=== PATIENT | female | born 1970 | race Caucasian/White ===

== ENCOUNTER 2017-09-24 06:24 | Inpatient (IN) ==
[2017-09-24] MEDS ORDERED: CeFAZolin Syr 3,000MG/30 ML 3,000 MG/30 ML SYRINGE IVPB ONE (06:41)
[2017-09-24] MEDS ORDERED: Lidocaine -MPF 1% 2 ML VIAL ID ONE (06:41)
[2017-09-24] MEDS: Ringers Solution, Lactated 1,000 ML IVC SCH ×3 (06:45→14:07)
[2017-09-24] MEDS ORDERED: Gabapentin 300 MG CAPSULE PO ONE (07:02)
[2017-09-24] MEDS ORDERED: Famotidine 20 MG/2 ML VIAL IVP ONE (07:02)
--- NOTE | 2017-09-24 07:09 | Anesthesia Evaluation PreOp ---
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 HX Other Medical History: Other (Morbid Obesity) Anesthesia History: No Prior Anesthetic Complications : No Test: Negative Alcohol Use: none Drug use: none Medications and Allergies Amoxicillin/Clavulanate [Augmentin] 875 mg PO BID #20 tablet 10/05/16 [Rx] Fluticasone Propionate Nasal [Flonase] 2 spray NS DAILY #1 bottle 10/05/16 [Rx] GuaiFENesin ER [Mucinex] 600 mg PO BID PRN #20 tab 10/05/16 [Rx] Ibuprofen [Motrin] 800 mg PO Q8HR PRN #20 tablet 10/05/16 [Rx] 3 Allergy/AdvReac Type Severity Reaction Status Date / Time acetaminophen [From Vicodin] AdvReac Diarrhea Verified 10/05/16 10:29 hydrocodone [From Vicodin] AdvReac Diarrhea Verified 10/05/16 10:29 - Meds/Allergy Pre-op Review Medications Reviewed: Yes Allergies Reviewed: Yes Beta Blockers on Current Med List: No Anesthesia Results - Labs Laboratory Tests 04/30/17 09/21/17 09/21/17 08:37 11:18 11:18 Hgb 13.1 Hct 40.0 Plt Count 363 Serum , Qual Negative Anesthesia Exam Vital Signs/O2 Sat/Glucose, Most Current Temp Pulse Resp BP Pulse Ox 09/24/17 06:42 97.9 F 76 18 126/79 97 Height: 5'5 Weight: 294 lbs NPO (# of Hours): MN Pain Scale: 0 - HEENT Pupil (Motor): Pupils equal, EOMI Mallampati: II Teeth: Normal Oral Opening: Greater than 3 - MAILING MACHINE OPERATOR LOC: Oriented MAILING MACHINE OPERATOR Motor: Normal RUE, Normal LUE, Normal RLE, Normal LLE, Normal Face MAILING MACHINE OPERATOR Sensory: Normal: RUE, LUE, RLE, LLE, Face - Cardiac Rhythm: Regular Murmur: None JVD: No Carotid Bruit: No - Pulmonary Breath Sounds: bilateral Clear Respiratory Effort: Symmetrical Anesthesia Assess/Plan ASA Score: 3 (MO) Modified Cary Scale for Level of Consciousness: Cooperative, oriented, and tranquil Anesthetic Plan: General Monitoring Plan: Standard Monitors Recovery Plan: PACU (Discussed GA, agrees to proceed)
[2017-09-24] MEDS ORDERED: Lidocaine -MPF 1% 2 ML VIAL ONE (07:12)
[2017-09-24] MEDS ORDERED: *HR* OxyCODONE/APAP 5/325 TABLET PO PRN (07:36)
[2017-09-24] MEDS ORDERED: Naloxone 0.4 MG/ML INJ IVP PRN (07:36)
[2017-09-24] MEDS ORDERED: Ondansetron 4 MG/2 ML VIAL IVP PRN (07:36)
--- NOTE | 2017-09-24 07:36 | History & Physical Report ---
Date of Encounter: 09/24/17 Time of Encounter: 07:34 24 Hour HP Update - Instructions Instructions: If the History and Physical is less than 30 days old and was completed prior to A.M. admission and or procedure and has NOT been updated on calendar day of procedure please complete this update prior to performing procedure. - Update Patient reports changes in Medical Condition: No Changes in examination, assessment, or condition: No Changes in Medication: No Preop tests/diagnostics Reviewed: Yes Surgery Remains Indicated: Yes Consent for Planned Operative Procedure(s) Verified: Yes - Pre-Operative Checklist Preoperative Checklist Indicated: Yes Prophylactic Antibiotic Ordered: Yes Home Medications Include Beta Camilo: No Beta Camilo Taken Today (Day of Surgery): No Beta Camilo Taken Yesterday (Day Prior to Surgery): No Is VTE Prophylaxis Indicated?: Yes
[2017-09-24] MEDS ORDERED: *HR* Propofol 200 MG/20 ML VIAL IVP ONE (07:38)
[2017-09-24] MEDS ORDERED: *HR* FentaNYL (PF) 100 MCG/2 ML VIAL ONE ×2 (07:42→08:40)
[2017-09-24] MEDS ORDERED: *HR* Midazolam HCl 2 MG/2 ML VIAL ONE (07:43)
[2017-09-24] MEDS ORDERED: Ringers Solution, Lactated 1,000 ML IVC SCH (07:45)
[2017-09-24] MEDS ORDERED: *HR* Promethazine 25 MG/ML VIAL IVP PRN (07:46)
[2017-09-24] MEDS ORDERED: *HR* Meperidine 25 MG/ML SYRINGE IVP PRN (07:46)
[2017-09-24] MEDS ORDERED: *HR* Rocuronium Bromide 50 MG/5 ML VIAL ONE (08:39)
[2017-09-24] MEDS ORDERED: Lidocaine -MPF 2% 2 ML VIAL ONE (08:39)
[2017-09-24] MEDS ORDERED: Ondansetron 4 MG/2 ML VIAL ONE (08:39)
[2017-09-24] MEDS ORDERED: Ketorolac 30 MG/ML VIAL ONE (08:39)
[2017-09-24] MEDS ORDERED: Dexamethasone 4 MG/ML VIAL ONE (08:39)
[2017-09-24] MEDS ORDERED: *HR* Succinylcholine 200 MG/10 ML VIAL IVP ONE (08:39)
[2017-09-24] MEDS ORDERED: Lidocaine -MPF 4% 5 ML AMPUL ONE (08:40)
[2017-09-24] MEDS ORDERED: *HR* HYDROmorphone 2 MG/ML SYRINGE ONE (10:16)
--- NOTE | 2017-09-24 10:30 | OB/GYN Procedure Note ---
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 Narrative: The patient was placed in the dorsal supine position after an adequate level of general anesthesia was obtained and after appropriate informed consent had been obtained. The March was draining clear urine from the bladder. After the patient was prepped and draped in the usual sterile manner, a Pfannenstiel incision was made at the level of her previous scar. Subcutaneous tissue was incised until the level of the rectus fascia was reached. A oskar was made in the fascia. This was extended the length of the incision using Tirado scissors. There was dense scar tissue communicating with the recti muscles but we were able to separate the muscles and get adequate entry into the abdomen. We explored the abdomen. The bowels grossly appeared normal. The uterus was noted to be adherent to the bladder and the adhesions extended to the anterior abdominal wall. The ovaries were examined and found to be normal, the tubes had been surgically ligated. The hysterectomy was begun after the bowels were packed. A mini maylard incision was made to give us better visualization. The right round ligament was clamped with the Ligasure device, clamped and cut. The anterior leaf of the broad ligament was cut using Metzenbaum scissors. The bladder that was adherent to the anterior aspect of the uterus was gently dissected using sharp and blunt dissection and it was gently pushed down with the sponge on a stick. Two fingers were inserted through the posterior leaf of the right broad ligament. The tissue was grasped with the Ligasure, clamped and cut to free the ovaries as well as amputate the tubes. The right uterine artery was then skeletonized, clamped at the level of the cervical os using the Ligasure device and cut. Similar procedure was done on the opposite side. By the time we got down to the cervix, we saw that the bladder was still adherent. I tried to dissect the bladder off with difficulty and with limited visualization due to patient habitus, I was not able to adequately dissect the bladder off the cervix completely so I proceeded to perform a supra cervical hysterectomy. The uterus was amputated at the utero-cervico junction. This we did by placing 2 curved heaneys tip to tip together beneath the uterus, using curved scissors to amputate the uterus. 0-Vicryl suture was then used to approximate the cervix. Bleeding points were suture ligated until adequate hemsostasis was achieved. The fascia was reapproximated with 0-vicryl, the subcutaneous tissue was reapproximated with 3-0 vicryl. The skin was closed with 4-0 vicryl. The patient tolerated the procedure well and was transferred to the floor.
[2017-09-24] MEDS: *HR* HYDROmorphone (PF) 1 MG/ML SYRINGE IVP PRN ×10 (10:50→20:01)
--- NOTE | 2017-09-24 11:51 | Anesthesia Evaluation Post Op ---
Date of Encounter: 09/24/17 Time of Encounter: 11:35 - Vital Signs Vital Signs: Vital Signs/O2 Sat/Glucose, Most Current Temp Pulse Resp BP Pulse Ox 09/24/17 11:37 97.3 F L 76 12 122/69 97 09/24/17 11:27 70 12 118/69 96 09/24/17 11:17 69 12 111/72 97 09/24/17 11:07 97.0 F L 68 12 122/75 97 09/24/17 10:57 72 14 125/75 97 09/24/17 10:47 71 14 122/77 98 09/24/17 10:37 97.3 F L 78 14 128/69 98 - Lungs Lungs: Clear Ascult./Percussion - Airway Airway: Non-obstructed - Cardiovascular Regular Rate - Mental Status Mental Status: Alert & Oriented, Answers Appropriately - Pain Pain Scale: 0 - Nausea Vomiting Nausea Vomiting: Not Present - Hydration Hydration: Ice chips - Discharge PostOp Status: Transfer Patient to floor
[2017-09-25] MEDS ORDERED: Ondansetron 4 MG/2 ML VIAL IVP PRN (00:58)
[2017-09-25] MEDS ORDERED: Ringers Solution, Lactated 500 ML IVC ONE (01:07)
[2017-09-25] MEDS: Loratadine/Pseudophed (12 HR) 1 EACH TABLET PO SCH (01:31)
[2017-09-25] MEDS ORDERED: *HR* Promethazine 25 MG/ML VIAL IVP PRN (03:32)
[2017-09-25] MEDS: Ringers Solution, Lactated 1,000 ML IVC SCH (03:38)
[2017-09-25 06:28] LABS: Basophils % 0.1 %; Hemoglobin 12.4 g/dL (11.5-15.4); Immature Granulocytes % 0.4 % (0-4); Lymphocytes # 1.2 K/mcL (0.6-4.6); Mean Corpuscular HGB Conc 32.6 g/dL (31.6-35.5); Mean Corpuscular Hemoglobin 28.1 pg (28.0-33.3); Mean Platelet Volume 9.3 fL (9.4-12.4); Monocytes # 0.9 K/mcL (0.0-1.3); Monocytes % 6.3 %; Neutrophils # 12.4 K/mcL (1.6-8.9); Platelet Count 271 K/mcL (140-400); Red Blood Count 4.42 M/mcL (3.82-4.97); Red Cell Distribution Width 13.5 % (11.5-14.5); Segmented Neutrophils % 85.2 %
--- NOTE | 2017-09-25 07:47 | OB/GYN Progress Note ---
Date of Encounter: 09/25/17 Time of Encounter: 07:38 - Assessment and Plan (1) Status post hysterectomy Current Visit: Yes Status: Acute will remove nath, patient receiving anti nausea meds, counseled patient to ambulate, keep on clears for now till evening, cont current post op care Subjective - Subjective Interval history: saw patient this AM, having some nausea, tolerated PO last night but developed nausea this Am, also reports GALLARDO, otherwise pain is under control, adequate urine , nath still in Objective - Vital Signs Latest vital signs: Vital Signs Temp Pulse Pulse Resp BP Pulse Ox 09/25/17 05:00 98.1 F 90 20 116/80 95 09/25/17 03:20 97.9 F 82 82 16 129/85 96 09/25/17 00:15 98.1 F 85 85 16 121/79 98 09/24/17 19:30 98.1 F 88 88 20 125/78 96 09/24/17 15:00 98.1 F 83 16 117/74 98 09/24/17 14:00 98.1 F 84 16 136/73 95 09/24/17 13:00 98.3 F 73 16 106/77 93 09/24/17 12:30 98.2 F 99 16 114/80 93 09/24/17 11:37 97.3 F L 76 12 122/69 97 09/24/17 11:27 70 12 118/69 96 09/24/17 11:17 69 12 111/72 97 09/24/17 11:07 97.0 F L 68 12 122/75 97 09/24/17 10:57 72 14 125/75 97 09/24/17 10:47 71 14 122/77 98 09/24/17 10:37 97.3 F L 78 14 128/69 98 Intake and Output 09/24/17 09/24/17 09/25/17 15:59 23:59 07:59 Intake Total 1030 / 1030 900 / 900 100 / 100 Output Total 150 / 150 350 / 350 925 / 925 Balance 880 / 880 550 / 550 -825 / -825 Intake: IV Fluids 1030 / 1030 900 / 900 Lactated Ringers 1,000 ML @ 125 1000 / 1000 900 / 900 mls/hr IVC .Q8H AFUA Rx#: [id number] Ancef Syringe 3,000 MG/30 ML 3, 30 / 30 000 mg In 30 ml @ 200 mls/hr IVPB PREOP ONE Rx#:[id number] Oral 100 / 100 Output: Urine 300 / 300 Emesis 600 / 600 Estimated Blood Loss 150 / 150 Catheter 50 / 50 325 / 325 Other: Weight 134.263 kg Patient Weight 09/25/17 23:59 Weight 134.263 kg - I&O's I&O's: Intake & Output 09/22/17 09/23/17 09/24/17 09/25/17 23:59 23:59 23:59 23:59 Intake Total 1930 / 1930 100 / 100 Output Total 500 / 500 925 / 925 Balance 1430 / 1430 -825 / -825 Weight 133.356 kg 134.263 kg - Exam Lungs: bilateral: normal Chest: Normal S1, Normal S2 Extremities: Present: normal Abdomen: Present: soft Incision OB: Present: dressed - Labs Labs: Abnormal lab results WBC 14.6 K/mcL (4.3-11.1) H 09/25/17 06:22 MPV 9.3 fL (9.4-12.4) L 09/25/17 06:22 Neutrophils # 12.4 K/mcL (1.6-8.9) H 09/25/17 06:22 Consult Discharge Plan - Plan Referrals: Sven Roman MD [Primary Care Provider] -
[2017-09-25] MEDS ORDERED: Acetaminophen/Butalbital/CaffeineTABLET PO PRN (07:49)
[2017-09-25] MEDS: Ibuprofen 600 MG TABLET PO PRN (17:50)
[2017-09-25] MEDS ORDERED: Ondansetron ODT 4 MG TAB.RAPDIS SL PRN (18:39)
[2017-09-26] MEDS: Ibuprofen 600 MG TABLET PO PRN ×2 (03:02→09:39)
[2017-09-26 08:32] VITALS: BP 120/80
[2017-09-26] MEDS: Loratadine/Pseudophed (12 HR) 1 EACH TABLET PO SCH (09:36)
--- NOTE | 2017-09-26 13:01 | Discharge Summary ---
Date of Encounter: 09/26/17 Time of Encounter: 13:00 - Discharge Diagnosis (1) Status post hysterectomy Priority: Primary Status: Acute Comments: patient seen and examined, doing very well, ok for discharge - Discharge Medications Home Medications: Ibuprofen/Diphenhydramine Cit [Advil Pm Caplet] 1 each PO PRN PRN 09/24/17 [ History] Allergies/Adverse Reactions: 3 Allergy/AdvReac Type Severity Reaction Status Date / Time acetaminophen [From Vicodin] AdvReac Diarrhea Verified 09/24/17 07:17 hydrocodone [From Vicodin] AdvReac Diarrhea Verified 09/24/17 07:17 Data Procedures and tests throughout hospitalization: Laboratory Tests 09/25/17 06:22 WBC 14.6 H RBC 4.42 Hgb 12.4 Hct 38.0 MCV 86.0 MCH 28.1 MCHC 32.6 RDW 13.5 Plt Count 271 MPV 9.3 L Immature Gran % 0.4 Seg Neutrophils % 85.2 Lymphocytes % 8.0 Monocytes % 6.3 Eosinophils % 0.0 Basophils % 0.1 Neutrophils # 12.4 H Lymphocytes # 1.2 Monocytes # 0.9 Eosinophils # 0.0 Basophils # 0.0 Date of admission: 09/24/17 12:07 Primary care physician: Sven Roman MD - Patient Status Disposition: Home, Self-Care Condition: Good Functional capacity at discharge: independent ambulation Overall status at discharge: patient is progressing back to baseline - Discharge Instructions Follow Up With: Sven Roman MD [Primary Care Provider] - Hospital Course SUPERVISOR PHOTOCOMPOSITION Time Attestation: Total time spent providing and/or coordinating discharge services: Exam - Constitutional Vitals: Temp Pulse Resp BP Pulse Ox 97.9 F 84 20 120/80 95 09/26/17 08:30 09/26/17 08:30 09/26/17 08:30 09/26/17 08:30 09/26/17 08:30 General appearance IM: A&O X 3 - Respiratory Respiratory exam: Present: CTAB - Cardiovascular Cardiovascular exam IM: Present: RRR - GI/Abdominal GI/Abdominal exam IM: soft Incision: normal - External exam: normal external exam - VTE Documentation of Mechanical Device: Intermittent pneumatic compression device
== END 2017-09-26 13:10 | disposition home or self-care (01) | DRG 742 ==
LOC: SAMDAY 06:24 → 1NENUOBS 12:07
PROVIDERS: ADMIT Student in an Organized Health Care Education/Training Program; ATTEND Student in an Organized Health Care Education/Training Program